=== PATIENT | female | born 1975 | race Caucasian/White ===

== ENCOUNTER 2016-10-17 17:40 | Emergency (ER) | payer SELFPAY ==
--- NOTE | 2016-10-17 18:58 | ER Document Report ---
ED Medical Screen (RME) - General Stated Complaint: SORE THROAT,FEVER,HEADACHE Notes: 40 yo female c/o fever, sore throat x 1 week. + cough, + post nasal drip TRAVEL OUTSIDE OF THE [place] IN LAST 30 DAYS: No - Related Data Allergies/Adverse Reactions: Penicillins Allergy (Severe, Verified 06/30/16 07:47) Hives Past Medical History Neurological Medical History: Reports: Hx Migraine. Denies: Hx Seizures Psychiatric Medical History: Reports: Hx Anxiety Past Surgical History: Reports: Hx Tubal Ligation - Immunizations Hx Diphtheria, Pertussis, Tetanus Vaccination: Yes Physical Exam - Vital signs Vitals: Temp Pulse Resp BP Pulse Ox 98.9 F 99 16 117/62 100 10/17/16 18:37 10/17/16 18:37 10/17/16 18:37 10/17/16 18:37 10/17/16 18:37 Course - Vital Signs Vital signs: Temp Pulse Resp BP Pulse Ox 98.9 F 99 16 117/62 100 10/17/16 18:37 10/17/16 18:37 10/17/16 18:37 10/17/16 18:37 10/17/16 18:37
[2016-10-17] MEDS ORDERED: IBUPROFEN 600 MG TABLET PO ONE (23:27)
--- NOTE | 2016-10-17 23:33 | ER Document Report ---
ED Flu Like - General Chief Complaint: Flu Symptoms Stated Complaint: SORE THROAT,FEVER,HEADACHE Information source: Patient TRAVEL OUTSIDE OF THE [place] IN LAST 30 DAYS: No - HPI Notes: This is a 40-year-old previously healthy female who presents with a one-week history of flu symptoms. She states that she has had a sore throat nonproductive cough and nasal congestion and subjective fevers and chills for the past 5-6 days. She did not get a flu shot this year. She knows several people who have been sick recently with similar symptoms. She denies nausea vomiting and diarrhea and she is tolerating by mouth without difficulty - Related Data Allergies/Adverse Reactions: Penicillins Allergy (Severe, Verified 06/30/16 07:47) Hives Past Medical History - General Information source: Patient - Social History Smoking Status: Never Smoker Chew tobacco use (# tins/day): No Frequency of alcohol use: None Drug Abuse: None Family History: Reviewed & Not Pertinent Patient has suicidal ideation: No Patient has homicidal ideation: No - Past Medical History Cardiac Medical History: Reports: None Pulmonary Medical History: Reports: None EENT Medical History: Reports: None Neurological Medical History: Reports: Hx Migraine. Denies: Hx Seizures Renal/ Medical History: Denies: Hx Peritoneal Dialysis Psychiatric Medical History: Reports: Hx Anxiety Past Surgical History: Reports: Hx Tubal Ligation - Immunizations Hx Diphtheria, Pertussis, Tetanus Vaccination: Yes Review of Systems - Review of Systems Notes: REVIEW OF SYSTEMS: CONSTITUTIONAL : as per HPI EENT: Denies eye, ear, or mouth pain or symptoms. Sore throat and nasal congestion as per hpi CARDIOVASCULAR: Denies chest pain. RESPIRATORY: as per hpi Denies shortness of breath, difficulty breathing, or wheezing. GASTROINTESTINAL: Denies abdominal pain. Denies nausea, vomiting, or diarrhea. GENITOURINARY: Denies difficulty urinating, painful urination, burning, frequency, or blood in urine. FEMALE GENITOURINARY: Denies vaginal bleeding, abnormal or irregular periods. LMP: MUSCULOSKELETAL: Denies neck or back pain or joint pain or swelling. SKIN: Denies rash or skin lesions. HEMATOLOGIC : Denies easy bruising or bleeding. LYMPHATIC: Denies swollen, enlarged glands. NEUROLOGICAL: Denies altered mental status or loss of consciousness. Mild headache PSYCHIATRIC: Denies anxiety or stress or depression. ALL OTHER SYSTEMS REVIEWED AND NEGATIVE. Physical Exam - Vital signs Vitals: Temp Pulse Resp BP Pulse Ox 98.9 F 99 16 117/62 100 10/17/16 18:37 10/17/16 18:37 10/17/16 18:37 10/17/16 18:37 10/17/16 18:37 - Notes Notes: PHYSICAL EXAMINATION: GENERAL: Appears to not feel well, but alert and conversant and non-toxic, well- nourished and in no acute distress. HEAD: Atraumatic, normocephalic. EYES: Pupils equal round and reactive to light, extraocular movements intact, sclera anicteric, conjunctiva are injected bilaterally ENT: nares patent, oropharynx clear without exudates. Moist mucous membranes. NECK: Normal range of motion, supple without lymphadenopathy LUNGS: Breath sounds clear to auscultation bilaterally and equal. No wheezes rales or rhonchi. HEART: Regular rate and rhythm without murmurs ABDOMEN: Soft, nontender, normoactive bowel sounds. No guarding, no rebound. No masses appreciated. EXTREMITIES: Normal range of motion, no edema NEUROLOGICAL: Cranial nerves grossly intact. Normal speech, normal gait. Normal sensory, motor, and reflex exams. PSYCH: Normal mood, normal affect. SKIN: Warm, Dry, normal turgor, no rashes or lesions noted. Course - Re-evaluation Re-evalutation: 10/17/16 23:32 We discussed symptoms and that she very well may the flu, but that at this point (5-6 days of symptoms) Tamiflu is not indicated. Discussed symptomatic and supportive care, push fluids, follow up PCP. Return precautions discussed and she is comfortable with plan - Vital Signs Vital signs: Temp Pulse Resp BP Pulse Ox 98.9 F 99 16 117/62 100 10/17/16 18:37 10/17/16 18:37 10/17/16 18:37 10/17/16 18:37 10/17/16 18:37 Discharge - Discharge Clinical Impression: Flu-like symptoms Condition: Good Disposition: HOME, SELF-CARE Additional Instructions: INFLUENZA: The physician feels that you have influenza -- the "flu". Influenza is an infection caused by a virus. Symptoms include generalized aching, fever, headache, dry cough, and fatigue. Some patients with the flu also have nausea, vomiting, and diarrhea. The fever and aches usually last two to four days, with the cough persisting another one to two weeks. Treatment of the flu, for the most part, is simply treatment of symptoms. Rest, drink plenty of fluids, and use acetaminophen for fever and aches. Do not take aspirin. There is an anti-viral medication, called Tamiflu, which may help in "type A" flu, but it's not helpful in every case of flu, and only works if started within the first 24 - 48 hours of the start of symptoms. The physician will determine whether this medication can help you. To prevent spread of the virus, use good handwashing. Shared toys should be cleaned with disinfectant. Clean the toilets, sinks, and counter surfaces in bathrooms. Launder clothing in hot water. What are conditions that should receive medical attention? The development of difficulty breathing. Lip color changes to blue or purple. Persistent vomiting and unable to keep liquids down with signs of dehydration such as: dizziness when standing, unable to urinate, or if child/infant is crying no tears are noticed. Is less responsive than normal or becomes confused. How do I decrease the spread of flu in my home? Taking care of the sick patient at home: Keep the sick person in a room separate from the common areas of the house. Keep the "sickroom" door closed. If the person with the flu needs to leave the home, they should cover their nose/mouth when coughing or sneezing and wear a disposable (surgical) mask if available. These masks may be available at your local pharmacy, medical supply and hardware store. If the sick person is in common areas of the house, have them wear a surgical mask. If possible, have the sick person use a separate bathroom that should be cleaned daily with a household disinfectant. If you are the caregiver: Avoid being face to face with the sick adult person as much as possible. Try to stay at least 6 feet away and wear a disposable surgical mask when possible. When holding small children who are sick, place their chin on your shoulder so that they will not cough in your face. Wash your hands after you touch the sick person or handle their tissues and laundry. Wear a mask if you leave home, as you may be infected from taking care of someone and not know it yet. Watch yourself and others in the home for flu symptoms and contact your doctor if symptoms occur. NOTE: Antiviral medication used to reduce the symptoms of the flu works only if taken within 48 hours, and best within 24 hours of symptom onset. Household Cleaning, laundry and waste disposal: Tissues and other disposable items used by the sick person should be thrown away in the trash. Wash your hands after touching these used items. No special waste disposal is required. Keep surfaces (especially bedside tables, bathroom surfaces, and toys for children) clean by wiping them down with a safe household disinfectant according to the directions on the product label. Per Center for Disease Control advice, most people will not receive testing to confirm flu. Also based on the person's health history and onset of symptoms, not all patients will receive prescriptions for antiviral medications. If you have questions related to this, please ask your healthcare provider. For more information, you can call the Centers for Disease Control and Prevention (CDC) Hotline at 8-556-[employer] This line is available in [place]an and French, 24 hours a day, 7 days a week. Or www.[employer] or www.cdc.gov USE OF ACETAMINOPHEN (Tylenol): Acetaminophen may be taken for pain relief or fever control. It's much safer than aspirin, offering a wider range of "safe" dosages. It is safe during . Some brand names are Tylenol, Panadol, Datril, Anacin 3, Tempra, and Liquiprin. Acetaminophen can be repeated every four hours. The following are maximum recommended dosages: WEIGHT Dose Drops Elixir Chewable( 80mg) (LBS.) drprs=droppers tsp=teaspoon 6 40 mg 0.4 ml (1/2) 6-11 80 mg 0.8 ml (full) tsp 1 tab 12-16 120 mg 1 1/2 drprs 3/4 tsp 1 1/2 tabs 17-23 160 mg 2 drprs 1 tsp 2 tabs 24-30 240 mg 3 drprs 1 1/2 tsp 3 tabs 30-35 320 mg 2 tsp 4 tabs 36-41 360 mg 2 1/4 tsp 4 1/2 tabs 42-47 400 mg 2 1/2 tsp 5 tabs 48-53 480 mg 3 tsp 6 tabs 54-59 520 mg 3 1/4 tsp 6 1/2 tabs 60-64 560 mg 3 1/2 tsp 7 tabs 65-70 600 mg 3 3/4 tsp 7 1/2 tabs 71-76 640 mg 4 tsp 8 tabs 77-82 720 mg 4 1/2 tsp 9 tabs 83-88 800 mg 5 tsp 10 tabs >89 pounds or adults 650 mg to 900 mg Acetaminophen can be repeated every four hours. Maximum dose not to exceed 4000 mg a day. These maximum recommended dosages are slightly higher than the dosages written on the product container, but these dosages are very safe and below the toxic dosage for acetaminophen. FOLLOW-UP CARE: If you have been referred to a physician for follow-up care, call the physician s office for an appointment as you were instructed or within the next two days. If you experience worsening or a significant change in your symptoms, notify the physician immediately or return to the Emergency Department at any time for re-evaluation. Prescriptions: Guaifenesin/Codeine Phos [Robitussin-AC Syrup 59 ml] 10 ml PO QIDP PRN #1 bottle PRN Reason: Ibuprofen 600 mg PO Q8H PRN #30 tablet PRN Reason: pain or fever Forms: Return to Work
[2016-10-18 00:10] VITALS: BP 124/74
== END 2016-10-18 00:07 | disposition home or self-care (01) ==
LOC: ER 17:40
DX: J02.9 Acute pharyngitis, unspecified (principal); R50.9 Fever, unspecified; R51 Headache; Z88.0 Allergy status to penicillin
CPT/HCPCS: 87070; 87880; 99283

== ENCOUNTER 2016-10-27 18:15 | Emergency (ER) | payer OTHER ==
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
[2016-10-27] MEDS ORDERED: OXYCODONE-ACETAMINOPHEN 5-325 MG TABLET PO ONE (19:11)
[2016-10-27] MEDS ORDERED: HYDROCODONE/ACETAMINOPHEN 5-325 MG 6 TAB/DSPK PO PRN (19:11)
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
[2016-10-27 20:26] VITALS: BP 107/60
== END 2016-10-27 20:25 | disposition home or self-care (01) ==
LOC: ER 18:15
DX: S09.90XA Unspecified injury of head, initial encounter (principal); S70.01XA Contusion of right hip, initial encounter; V89.2XXA Person injured in unspecified motor-vehicle accident, traffic, initial encounter; Z88.0 Allergy status to penicillin
CPT/HCPCS: 70450; 99284

== ENCOUNTER 2018-08-30 13:30 | Emergency (ER) | payer SELFPAY ==
--- NOTE | 2018-08-30 14:18 | ER Document Report ---
HPI - HPI Patient complains to provider of: Cough Time Seen by Provider: 08/30/18 14:05 Onset/Duration: Persistent Quality of pain: Achy Pain Level: 4 Context: Patient presents complaining of cough for the past 2 weeks. Patient reports sore throat ear pain and congestion. Patient does report subjective fever off and on but has not measured her temperature with a thermometer. Associated Symptoms: Body/muscle aches, Nonproductive cough, Earache, Fever, Sore throat. denies: Vomiting Exacerbated by: Denies Relieved by: Denies Similar symptoms previously: Yes Recently seen / treated by doctor: No - ROS ROS below otherwise negative: Yes Systems Reviewed and Negative: Yes All other systems reviewed and negative - CONSTITUTIONAL Constitutional: REPORTS: Fever, Chills - EENT EENT: REPORTS: Sore Throat, Ear Pain - RESPIRATORY Respiratory: REPORTS: Coughing - GASTROINTESTINAL Gastrointestinal: DENIES: Nausea, Patient vomiting - REPRODUCTIVE Reproductive: DENIES: : - DERM Skin Color: Normal Skin Problems: None Past Medical History - General Information source: Patient - Social History Smoking Status: Never Smoker Frequency of alcohol use: None Drug Abuse: None Occupation: [employer] Family History: Reviewed & Not Pertinent Neurological Medical History: Reports: Hx Migraine. Denies: Hx Seizures Renal/ Medical History: Denies: Hx Peritoneal Dialysis Psychiatric Medical History: Reports: Hx Anxiety Past Surgical History: Reports: Hx Tubal Ligation - Immunizations Hx Diphtheria, Pertussis, Tetanus Vaccination: Yes Vertical Provider Document - CONSTITUTIONAL Agree With Documented VS: Yes Exam Limitations: No Limitations General Appearance: WD/WN, No Apparent Distress - INFECTION CONTROL TRAVEL OUTSIDE OF THE [place] IN LAST 30 DAYS: No - HEENT HEENT: Atraumatic, Normocephalic, Pharyngeal Tenderness, Pharyngeal Erythema. negative: Pharyngeal Exudate, Tympanic Membrane Red, Tympanic Membrane Bulging Notes: Clear rhinorrhea - NECK Neck: Normal Inspection, Supple. negative: Lymphadenopathy-Left, Lymphadenopathy-Right - RESPIRATORY Respiratory: No Respiratory Distress, Rhonchi - CARDIOVASCULAR Cardiovascular: Regular Rate, Regular Rhythm, No Murmur - BACK Back: Normal Inspection - MUSCULOSKELETAL/EXTREMETIES Musculoskeletal/Extremeties: MARIYA LY - NEURO Level of Consciousness: Awake, Alert, Appropriate Motor/Sensory: No Motor Deficit - DERM Integumentary: Warm, Dry, No Rash Course - Re-evaluation Re-evalutation: 08/30/18 15:31 Respirations even unlabored, patient nontoxic in appearance. No concern for sepsis or pneumonia at this time. - Vital Signs Vital signs: Temp Pulse Resp BP Pulse Ox 98.7 F 86 16 110/63 98 08/30/18 13:32 08/30/18 13:32 08/30/18 13:32 08/30/18 13:32 08/30/18 13:32 - Laboratory Laboratory results interpreted by me: 08/30/18 15:31 Labs- Entire Visit 08/30/18 14:23 Group A Strep Rapid NEGATIVE - Diagnostic Test Radiology reviewed: Reports reviewed Discharge - Discharge Clinical Impression: Bronchitis, Sore throat Condition: Stable Disposition: HOME, SELF-CARE Instructions: Bronchitis ([facility]), Inhaled Bronchodilators ([facility]), Sore Throat ([facility] ) Additional Instructions: Return immediately for any new or worsening symptoms Followup with your primary care provider, call tomorrow to make a followup appointment Prescriptions: Benzonatate [Tessalon Perle 100 mg Capsule] 100 mg PO Q8HP PRN #20 cap PRN Reason: Albuterol Sulfate [Proair Hfa Inhalation Aerosol 8.5 gm Mdi] 2 puff IH Q4 PRN # 1 mdi PRN Reason: Naproxen [Naprosyn 250 Nmg Tablet] 1 tab PO BID #14 tablet Prednisone [Deltasone 10 mg Tablet] 10 mg PO ASDIR PRN #21 tablet PRN Reason: Forms: Return to Work Referrals: [facility] [Provider Group] - Follow up as needed [facility] [Provider Group] - Follow up as needed
--- NOTE | 2018-08-30 15:26 | RADIOLOGY REPORT (SQ) ---
EXAM DESCRIPTION: CHEST 2 VIEWS COMPLETED DATE/TIME: 08/30/2018 3:13 pm REASON FOR STUDY: cough COMPARISON: 2014 TECHNIQUE: Frontal and lateral radiographic views of the chest acquired. NUMBER OF VIEWS: Two view. LIMITATIONS: None. FINDINGS: LUNGS AND PLEURA: No opacities, masses or pneumothorax. No pleural effusion. MEDIASTINUM AND HILAR STRUCTURES: No masses or contour abnormalities. HEART AND VASCULAR STRUCTURES: Heart normal size. No evidence for failure. BONES: No acute findings. HARDWARE: None in the chest. OTHER: No other significant finding. IMPRESSION: NO SIGNIFICANT RADIOGRAPHIC FINDING IN THE CHEST. TECHNICAL DOCUMENTATION: JOB ID: [id number] [facility]- All Rights Reserved Reading location - IP/workstation name: [email or web address]
[2018-08-30 15:48] VITALS: BP 112/68
== END 2018-08-30 15:48 | disposition home or self-care (01) ==
LOC: ER 13:30
DX: J40 Bronchitis, not specified as acute or chronic (principal); J02.9 Acute pharyngitis, unspecified; M79.10 Myalgia, unspecified site
CPT/HCPCS: 71046; 87070; 87880; 99283

== ENCOUNTER 2019-01-01 05:55 | Emergency (ER) | payer SELFPAY ==
[2019-01-01] MEDS ORDERED: METOCLOPRAMIDE HCL INJ/PF 10 MG/2 ML SDV IV ONE (07:55)
[2019-01-01] MEDS ORDERED: DIPHENHYDRAMINE HCL 50 MG/ML VIAL IV ONE (07:55)
[2019-01-01] MEDS ORDERED: KETOROLAC TROMETHAMINE INJ/PF 30 MG/1 ML SDV IV ONE (07:55)
[2019-01-01] MEDS ORDERED: NORMAL SALINE 1000 ML 1,000 ML IV ONE (08:19)
--- NOTE | 2019-01-01 09:29 | ER Document Report ---
ED General - General Chief Complaint: Headache Stated Complaint: HEADACHE,VOMITING Time Seen by Provider: 01/01/19 07:35 TRAVEL OUTSIDE OF THE [place] IN LAST 30 DAYS: No - HPI Notes: Patient is a 43-year-old female who presents emergency department for evaluation of a headache. Is behind her right eye. She states is throbbing. It is typical of her normal migraines. She has had nausea with one episode of emesis. It was nonbloody, nonbilious. No fevers. No difficulty seeing, speaking, swallowing. Moving arms and legs without difficulty. Her pain is made worse with bright light and loud noises, as is typical for her. - Related Data Allergies/Adverse Reactions: Penicillins Allergy (Severe, Verified 08/30/18 13:31) Hives Past Medical History - General Information source: Patient - Social History Smoking Status: Never Smoker Family History: Reviewed & Not Pertinent Patient has suicidal ideation: No Patient has homicidal ideation: No Neurological Medical History: Reports: Hx Migraine. Denies: Hx Seizures Renal/ Medical History: Denies: Hx Peritoneal Dialysis Psychiatric Medical History: Reports: Hx Anxiety Past Surgical History: Reports: Hx Tubal Ligation - Immunizations Hx Diphtheria, Pertussis, Tetanus Vaccination: Yes Review of Systems - Review of Systems Constitutional: No symptoms reported EENT: No symptoms reported Cardiovascular: No symptoms reported Respiratory: No symptoms reported Gastrointestinal: See HPI Genitourinary: No symptoms reported Musculoskeletal: No symptoms reported Skin: No symptoms reported Neurological/Psychological: See HPI Physical Exam - Vital signs Vitals: Temp Pulse Resp BP Pulse Ox 98.1 F 79 16 108/58 L 98 01/01/19 06:01 01/01/19 06:01 01/01/19 06:01 01/01/19 06:01 01/01/19 06:01 - Notes Notes: Vital signs reviewed, please refer to chart. Patient is normocephalic, atraumat ic. Pupils equal round, reactive to light. Neck is supple without meningismus. Heart is regular rate and rhythm. Lungs are clear to auscultation bilaterally. Abdomen is soft, nontender, normoactive bowel sounds throughout. Extremities without cyanosis, clubbing, edema. Peripheral pulses are equal. Skin is warm and dry. Patient is awake, alert, oriented x3. Cranial nerves II through XII a re grossly intact without focal neurological deficits. Plus 5 out of 5 bilateral upper and lower extremities. Sensation is intact. Intact [id number], rapid or any movements, [id number]. Course - Re-evaluation Re-evalutation: 01/01/19 09:26 Patient presents emergency department for evaluation of a migraine. It is a ty pical migraine headache for her. She is medicated here with a migraine cocktail with significant relief. We will have her follow-up with primary care, she is to return to the ED with worsening or new concerning symptoms. - Vital Signs Vital signs: Temp Pulse Resp BP Pulse Ox 98.1 F 79 16 108/58 L 98 01/01/19 06:01 01/01/19 06:01 01/01/19 07:56 01/01/19 06:01 01/01/19 06:01 Discharge - Discharge Clinical Impression: Migraine headache without aura Condition: Stable Disposition: HOME, SELF-CARE Instructions: Antinausea Medication ([facility]), Reglan ([facility]), Toradol Injection ([facility]) Additional Instructions: Rest, stay well-hydrated small frequent sips of fluids. Follow-up with your doctor next week. Return to the emergency department with worsening or new conc erning symptoms.
[2019-01-01 10:22] VITALS: BP 104/53
== END 2019-01-01 10:22 | disposition home or self-care (01) ==
LOC: ER 05:55
DX: G43.009 Migraine without aura, not intractable, without status migrainosus (principal); R11.2 Nausea with vomiting, unspecified
CPT/HCPCS: 99283; 96374; 96375; J1200; J1885; J2765; J7030

== ENCOUNTER 2019-07-07 09:55 | Emergency (ER) | payer BC ==
[2019-07-07 10:01] VITALS: BP 124/68
[2019-07-07] MEDS ORDERED: ACETAMINOPHEN 325 MG TABLET PO ONE (10:42)
[2019-07-07 11:21] LABS: A TYPE INFLUENZA AG NEGATIVE (NEGATIVE); B INFLUENZA AG NEGATIVE (NEGATIVE)
--- NOTE | 2019-07-07 11:46 | ER Document Report ---
HPI - HPI Time Seen by Provider: 07/07/19 10:27 Pain Level: 5 Notes: Patient is an otherwise healthy 43-year-old female presenting to the emergency department chief complaint of sore throat, left ear pain and generalized body aches. Patient reports her symptoms have been ongoing for 2 days. She reports associated nausea and fever. She denies any difficulty swallowing, difficulty breathing, vomiting or diarrhea. She denies any sick contacts. - CONSTITUTIONAL Constitutional: REPORTS: Fever. DENIES: Chills - EENT EENT: REPORTS: Sore Throat, Ear Pain - left - REPRODUCTIVE Reproductive: DENIES: : Past Medical History - General Information source: Patient - Social History Smoking Status: Never Smoker Chew tobacco use (# tins/day): No Frequency of alcohol use: None Drug Abuse: None Family History: Reviewed & Not Pertinent Patient has suicidal ideation: No Patient has homicidal ideation: No Neurological Medical History: Reports: Hx Migraine. Denies: Hx Seizures Renal/ Medical History: Denies: Hx Peritoneal Dialysis Psychiatric Medical History: Reports: Hx Anxiety Past Surgical History: Reports: Hx Tubal Ligation - Immunizations Hx Diphtheria, Pertussis, Tetanus Vaccination: Yes Vertical Provider Document - CONSTITUTIONAL Notes: PHYSICAL EXAMINATION: GENERAL: Well-appearing, well-nourished and in no acute distress. HEAD: Atraumatic, normocephalic. EYES: Pupils equal round extraocular movements intact, conjunctiva are normal. ENT: Bilateral tonsillar swelling, erythema and exudates noted, no evidence of peritonsillar abscess, uvula midline. NECK: Normal range of motion, mild cervical lymphadenopathy bilaterally. LUNGS: No respiratory distress, lung sounds clear and equal bilaterally. Musculoskeletal: Normal range of motion NEUROLOGICAL: Normal speech, normal gait. PSYCH: Normal mood, normal affect. SKIN: Warm, Dry, normal turgor, no rashes or lesions noted. - INFECTION CONTROL TRAVEL OUTSIDE OF THE [place] IN LAST 30 DAYS: No Course - Re-evaluation Re-evalutation: Patient appears well, nontoxic, vital signs are within normal limits. Patient has no difficulty speaking or swallowing. Rapid strep was negative. Throat culture pending. Patient will be discharged home on prednisone. Patient understands culture nurse will call if the throat culture is positive. Patient verbalized understanding and agreement with plan and ED return precautions. - Vital Signs Vital signs: Temp Pulse Resp BP Pulse Ox 98.8 F 99 17 124/68 100 07/07/19 09:59 07/07/19 09:59 07/07/19 09:59 07/07/19 09:59 07/07/19 09:59 Discharge - Discharge Clinical Impression: Sore throat, Viral illness Condition: Stable Disposition: HOME, SELF-CARE Instructions: Sore Throat ([facility]), Viral Syndrome ([facility]) Additional Instructions: The rapid strep and flu test were negative today. A throat culture is pending, if this is abnormal someone will call you in the next 48 to 72 hours. In the meanwhile drink plenty of fluids, get plenty of rest, take the prescribed medications. Use throat lozenges for the sore throat. Tylenol or Motrin for any body aches or fevers. You may take 650 mg of Tylenol and 600 mg of ibuprofen every 6 hours. Prescriptions: Prednisone [Deltasone 20 mg Tablet] 3 tab PO DAILY 5 Days #15 tablet Ondansetron [Zofran Odt 4 mg Tablet] 1 - 2 tab PO Q4H PRN #15 tab.rapdis PRN Reason: For Nausea/Vomiting Forms: Return to Work
== END 2019-07-07 11:50 | disposition home or self-care (01) ==
LOC: ER 09:55
DX: B34.9 Viral infection, unspecified (principal); J02.9 Acute pharyngitis, unspecified; H92.02 Otalgia, left ear; M79.10 Myalgia, unspecified site; R11.0 Nausea; R50.9 Fever, unspecified
CPT/HCPCS: 87070; 87077; 87804; 87880; 99283